=== PATIENT | female | born 1945 | race Caucasian/White ===

== ENCOUNTER → 2017-05-24 | Outpatient (CLI) | payer OTHER ==
[~2017-05-24] VITALS: Ht 154.9 cm; Wt 79.4 kg
[~2017-05-24] MED LIST: ADVAIR 500-501 EACH INH; ALBUTEROL2.5 MG/31 INH; AMITRIPTYLINE H25 M4 PO; ASPIRIN EC81 M1 PO; ATORVASTATIN CA40 MG PO; AVELOX 400 MG400 M1 PO; CARBIDOPA-LEVO1 EAC9 PO; CHLORTHALIDONE25 MG PO; COUMADIN 5 MG TA5 M1 PO; COZAAR 50 MG TA50 M2 PO; DILTIAZEM 24HR240 MG PO; FUROSEMIDE 20 M20 MG PO; KLOR-CON 1010 MEQ PO; LOPRESSOR50 PO; MUCINEX600 MG PO; PREDNISONE 10 M10 M1 PO; SPIRIVA INH; SYNTHROID137 MC1 PO; VENTOLIN HFA 1818 GM INH; ZETIA10 MG PO; ZOLOFT 50 MG TA50 M1 PO
--- NOTE | ~2017-05-24 | CATHLAB ---
Formerly [facility] [employer] [place] [address] INVASIVE PROCEDURE REPORT Name: MARIA ESTHER CASTILLO Room #: REG Mj#: [id number] Admission: 05/24/17 Attend Phys: David Beckford, Discharge: Date of : 49 Date of Service: 05/24/17 1726 Report #: [id number] THIS REPORT FOR: //name// APPROVED REPORT Study performed: 05/24/2017 08:56:56 Patient Details Patient Status: In-Patient Room #: The patient is a 71 year-old female Event Personnel David Beckford Clinical Account Executive, Itz Rashid RN, , Toshia Curtis RTR, GEOVANNY Paz, Rylan Gaviria Monitor Procedures Performed Right and Left Heart Cath w/or w/o Coronarie [id number] [facility] AA Indication Abnormal ECG Procedure Narrative The patient was brought electively to the Cardiac Catheterization Laboratory and was prepped and draped in a sterile manner. The Right Groin^ was infiltrated with 1% Lidocaine subcutaneous anesthesia. A PINNACLE 6FR Sheath #[id number] sheath was inserted into the RFA^. Coronary angiography was performed using coronary diagnostic catheters. The right coronary system was accessed and visualized with a 3DRC catheter. The left coronary system was accessed and visualized with a JL4 catheter. The left ventricle was accessed and visualized with a PIGTAIL catheter. Left ventricular/Aortic Valve gradient assessed via catheter pullback. An aortogram of the abdominal aorta was performed. Closure device was deployed with a 6 Fr MYNXGRIP 6/7F #[id number]. The patient tolerated the procedure well and there were no complications associated with the procedure. There was no hematoma. Intraoperative Conscious Sedation Sedation start time: 9.21 Case end Time: 9.40 Fentanyl 50 mcg Versed 1.5 mg Fluoro Time: 445.00 minutes Dose: 445 mGy Formerly [facility] [employer] [place] [address] INVASIVE PROCEDURE REPORT Name: MARIA ESTHER CASTILLO [id number] Admission: 05/24/17 Attend Phys: David Beckford, Discharge: Date of : 49 Date of Service: 05/24/17 1726 Report #: [id number] Contrast Type and Amount: Omnipaque 175 ml Hemodynamics The right atrial mean pressure is 17 mmHg. The right ventricular pressure is 46/12 mmHg. The pulmonary artery pressure is 43/17 mmHg with a mean of 31 mmHg. The mean pulmonary capillary wedge pressure is 23 mmHg. The aortic pressure is 152/64 mmHg with a mean of 99 mmHg. The left ventricular pressure is 164/17 mmHg with a mean of mmHg. The left ventricular end diastolic pressure is 26 mmHg. Conclusion #1 successful right heart catheterization as described above with moderate pulmonary hypertension. Cardiac output via thermodilution. #2 normal left jugular size and systolic function EF 60% #3 abdominal aorta is intact with mild irregularity no aneurysm single bilateral renal arteries widely patent. #4 left main free of disease giving rise to LAD and circumflex #5 LAD extends around the apex with mild irregularities no occlusive disease is noted #6 dominant circumflex artery is mildly disease distally but it is a dominant vessel without significant occlusive disease #7 RCA small nondominant no disease Recommendations and plan continue aggressive risk factor modification. Pulmonary pressures are markedly improved from the noninvasive assessment with PA pressures 80s to 90s. Measuring 40s with minimal elevation of wedge pressure here today. Follow-up with Dr. Gomez and Leslie in [facility]. Dr. lucio in his clinic <ELECTRONICALLY SIGNED> By: David Beckford MD, FACC 05/24/171725 25 25 David Beckford MD, FACC /INF
--- NOTE | ~2017-05-24 | EKG ---
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
--- NOTE | ~2017-05-24 | H ---
[facility] [place] [address] HISTORY AND PHYSICAL Name: MARIA ESTHER CASTILLO Room #: REG [facility].#: [id number] Admission: 05/24/17 Attend Phys: David Beckford MD, Discharge: Date of : 49 Report #: [id number] THIS REPORT FOR: //name// CC: Matthew Alegria DATE OF SERVICE: 05/24/2017 HISTORY OF PRESENT ILLNESS: The patient is a 71-year-old female who was referred up by Dr. eNlson and Dr. Gomez for right and left heart catheterization during the diagnosis of pulmonary hypertension. She was unaware of this diagnosis until the last couple of months, but notes progressive shortness of breath and dyspnea for the last year. She also has been having some associated chest pressure and discomfort. Some of this radiates to the left shoulder and arm, but this is always associated with significant shortness of breath. An echo Doppler there suggested pulmonary pressures in the 80-90 range with an ejection fraction near normal and some right-sided pressure volume overload findings. She has been compliant with medications. Systemic blood pressure has been well controlled, she states. Her mother has had 8 stents, no other family members have documented coronary artery disease. MEDICATIONS: Albuterol, Elavil, aspirin, Lipitor 40, carbidopa/levodopa, diltiazem 240, fluconazole, Lasix 20, Breo, potassium, levothyroxine, losartan 50, sertraline 50, Ventolin. PAST MEDICAL HISTORY: Positive for paroxysmal AFib, now with documented pulmonary hypertension, dyspnea, suspected COPD, asthma, hypertension, hypercholesterolemia. There is also a cholecystectomy, hysterectomy. FAMILY HISTORY: Mother has 8 stents. Father from lung cancer. SOCIAL HISTORY: She is . She has adopted children. No alcohol or tobacco. PHYSICAL EXAMINATION: VITAL SIGNS: Blood pressure is 136/70, pulse 60s. HEENT: Eyes reveal xanthelasmas. Pharynx is clear. NECK: Shows preserved upstrokes without JVD or bruits. LUNGS: Prolonged expiratory phase. CARDIOVASCULAR: Regular rate and rhythm S1, accentuated S2 P2. Holosystolic murmur is noted at the apex. ABDOMEN: Soft. No HSM, abdominal bruit. [facility] [address] [place] [address] HISTORY AND PHYSICAL Name: MARIA ESTHER CASTILLO RUTH Room #: REG [facility].#: [id number] Admission: 05/24/17 Attend Phys: David Beckford MD, Discharge: Date of : 49 Report #: [id number] EXTREMITIES: Reveal trace of edema. Distal pulses were intact. NEUROLOGIC: Nonfocal. SKIN: Warm and dry without xanthoma or ulcer. MUSCULOSKELETAL: No gross joint deformity. Generalized arthritic changes are noted. I did not ambulate her. ASSESSMENT: 1. Pulmonary hypertension. 2. Hypertension. 3. Recurrent chest pain, possible anginal equivalent. 4. Hypercholesterolemia. 5. Asthma/chronic obstructive pulmonary disease. 6. Hypothyroidism. RECOMMENDATIONS AND PLAN: Proceed to the catheterization lab for right and left heart catheterization. Risks, benefits, alternatives were discussed with the patient. She does like to proceed. I will forward all these results back to Dr. Nelson and Dr. Matthew Hernandez. Thank you for allowing to assist in care of this patient. <ELECTRONICALLY SIGNED> By: David Beckford MD, FACC 05/24/17 1539 0749 0810 David Beckford MD, FACC /nt
[2017-05-24 07:06] VITALS: BP 136/69
[2017-05-24 07:11] LABS: HEMATOCRIT 40.4 % (37.0-47.0); HEMOGLOBIN 13.5 gm/dL (12.0-15.0); MCH 29.9 pg (26.0-34.0); MCHC 33.5 g/dL (28.0-37.0); MCV 89.3 fL (80.0-100.0); RBC 4.52 mil/uL (4.20-5.00); RDW 13.4 % (10.5-14.5); WBC 7.5 thou/uL (4.0-11.0)
[2017-05-24 07:25] LABS: CALCIUM 9.4 mg/dL (8.5-10.1); CREATININE 0.9 mg/dL (0.6-1.0)
== END | disposition home or self-care (01) ==
LOC: CATH 06:38
PROVIDERS: Internal Medicine Cardiovascular Disease
DX: I25.10 Atherosclerotic heart disease of native coronary artery without angina pectoris (principal); I27.0 Primary pulmonary hypertension; I48.91 Unspecified atrial fibrillation; E03.9 Hypothyroidism, unspecified; E78.5 Hyperlipidemia, unspecified; J45.909 Unspecified asthma, uncomplicated; Z95.5 Presence of coronary angioplasty implant and graft; Z90.710 Acquired absence of both cervix and uterus; Z90.49 Acquired absence of other specified parts of digestive tract; Z79.01 Long term (current) use of anticoagulants; Z82.49 Family history of ischemic heart disease and other diseases of the circulatory system; Z79.899 Other long term (current) drug therapy; Z79.82 Long term (current) use of aspirin

== ENCOUNTER 2018-12-24 10:04 | Inpatient (IN) | payer OTHER ==
[~2018-12-24] VITALS: Ht 147.3 cm; Wt 83.0 kg
[~2018-12-24 10:04] MED LIST changes: +COZAAR 50 MG TA50 M1 PO; -COZAAR 50 MG TA50 M2 PO
[2018-12-24] MEDS ORDERED: DUPIXENT200 MG/1.1 SQ (12:24)
[2018-12-24] MEDS ORDERED: NORVASC5 M1 PO (12:25)
[2018-12-24] MEDS ORDERED: BREO ELLIPTA 21 EACH INH (12:26)
[2018-12-24] MEDS ORDERED: EPIPEN0.3 MG/0.1 IM (12:27)
[2018-12-24] MEDS ORDERED: CRESTOR5 MG PO (12:27)
[2018-12-24] MEDS ORDERED: ZETIA10 MG PO (12:28)
[2018-12-24] MEDS ORDERED: SINGULAIR 10 MG10 MG PO (12:29)
[2018-12-24] MEDS ORDERED: PREDNISONE 20 M20 MG PO (12:30)
[2018-12-24] MEDS ORDERED: PROPAFENONE 15150 MG PO (12:30)
[2018-12-24] MEDS ORDERED: PROPAFENONE 22225 MG PO (12:32)
[2018-12-24] MEDS ORDERED: TIZANIDINE HCL4 M1 PO (12:33)
[2018-12-24 13:17] LABS: BASOPHILS 1.4 % (0.0-2.0); EOSINOPHILS 1.9 % (0.0-3.0); HEMATOCRIT 42.7 % (37.0-47.0); LYMPHOCYTES 28.5 % (24.0-44.0); MCH 29.8 pg (26.0-34.0); MCHC 32.9 g/dL (28.0-37.0); MCV 90.7 fL (80.0-100.0); MONOCYTES 8.2 % (1.0-8.0); PLATELET COUNT 293 thou/uL (150-400); RBC 4.71 mil/uL (4.20-5.00); RDW 14.3 % (10.5-14.5); WBC 8.3 thou/uL (4.0-11.0)
[2018-12-24 13:35] LABS: ALBUMIN 3.8 g/dL (3.4-5.0); MAGNESIUM 2.2 mg/dL (1.8-2.4); POTASSIUM 4.4 mmol/L (3.5-5.1); TOTAL BILIRUBIN 0.4 mg/dL (<0.1-1.0); TOTAL PROTEIN 7.6 g/dL (6.4-8.2)
[2018-12-24 15:39] VITALS: BP 187/85
--- NOTE | 2018-12-24 18:49 | NUR ---
PT WAS ADMITTED FROM [facility] AROUND 1200 TODAY FOR ASTHMA EXACERBATION. PT COUGHING NON STOP. WAS GIVEN PRN COUGH MEDICATION NEEDED. PT VSS, UP TO BATHROOM WITH SBA.
[2018-12-24 20:33] VITALS: BP 147/56
[2018-12-25] VITALS (10 sets, daily range): BP systolic 118–161; BP diastolic 53–100
--- NOTE | 2018-12-25 03:39 | NUR ---
ASSESSMENT CHARTED. PT COUGH CONTROLED WITH PRN MUSINEX AND TESLON PEARLS PER EMAR. AFTER RECIEVING A BREATHING TREATMENT PT HR AFIB RVR UP TO 150'S SUSTAINED PT STATED PRESSURE IN BACK. 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 HR AFIB 130-140 BODY LINER NOTIFIED, ORDERS RECIEVED. XERALTO ORDERED AND AFIB CARDIZEM GTTS STARTED PER PROTOCOL, RATES NOW WNL. WILL CONTINUE TO MONITOR AND WITH POC.
[2018-12-25 05:28] LABS: HEMATOCRIT 42.7 % (37.0-47.0); HEMOGLOBIN 13.9 gm/dL (12.0-15.0); MCH 30.2 pg (26.0-34.0); MCHC 32.6 g/dL (28.0-37.0); MCV 92.7 fL (80.0-100.0); RBC 4.6 mil/uL (4.20-5.00); RDW 14.9 % (10.5-14.5); WBC 6.1 thou/uL (4.0-11.0)
[2018-12-25 05:54] LABS: CALCIUM 9.7 mg/dL (8.5-10.1); CREATININE 1.1 mg/dL (0.6-1.0); MAGNESIUM 2.4 mg/dL (1.8-2.4); PHOSPHORUS 4.2 mg/dL (2.5-4.9); POTASSIUM 4.1 mmol/L (3.5-5.1)
--- NOTE | 2018-12-25 14:35 | 2DMMODE ---
[facility] [place] [address] 2 D/M-MODE ECHOCARDIOGRAM Name: ANNAMARIA ESTHER RUTH Room #: 205-P [facility] IN ..#: [id number] Admission: 12/24/18 Attend Phys: Aleks Juarez MD Discharge: Date of : 49 Report #: [id number] THIS REPORT FOR: //name// APPROVED REPORT Study performed: 12/25/2018 12:25:37 EXAM: Comprehensive 2D, Doppler, and color-flow Echocardiogram Patient Location: Echo lab Status: routine BSA: 1.79 HR: 86 bpm BP: 161/47 mmHg Rhythm: NSR Other Information Study Quality: Good Indications Atrial Fibrillation 2D Dimensions RVDd: 21.94 mm IVSd: 14.11 (7-11mm) LVOT Diam: 18.96 (18-24mm) LVDd: 39.75 mm PWd: 11.33 (7-11mm) Ascending Ao: 32.07 (22-36mm) LVDs: 27.08 (25-40mm) Aortic Root: 32.51 mm IVC: 14.00 mm Volumes Left Atrial Volume (Systole) Single Plane 4CH: 53.17 mL Single Plane 2CH: 56.97 mL LA ESV Index: 35.00 mL/m2 Aortic Valve AoV Peak Theron.: 2.69 m/s AO Peak Gr.: 29.04 mmHg LVOT Max P.24 mmHg AO Mean Gr.: 12.70 mmHg LVOT Mean P.55 mmHg AO V2 Mean: 1.64 m/s LVOT Max V: 1.52 m/s AO V2 VTI: 45.44 cm LVOT Mean V: 0.83 m/s DARIO (VTI): 1.74 cm2 LVOT V1 VTI: 28.02 cm DRAIO Vmax: 1.59 cm2 SV (LVOT): 79.10 mL [facility] [place] [address] 2 D/M-MODE ECHOCARDIOGRAM Name: ANNAMARIA ESTHER NOGAL Room #: 205-P [facility] IN .R.#: [id number] Admission: 12/24/18 Attend Phys: Aleks Juarez MD Discharge: Date of : 49 Report #: [id number] Mitral Valve E/A Ratio: 0.8 MV Decel. Time: 229.86 ms MV E Max Theron.: 0.81 m/s MV A Theron.: 0.96 m/s MV PHT: 66.66 ms IVRT: 79.58 ms Pulmonary Valve PV Peak Theron.: 1.82 m/s PV Peak Gr.: 13.25 mmHg Pulmonary Vein P Vein S: 0.58 m/s P Vein A: 0.35 m/s P Vein D: 0.54 m/s P Vein A Dur.: 92.3 msec P Vein S/D Ratio: 1.07 Tricuspid Valve TR Peak Theron.: 2.98 m/s RAP Estimate: 5.00 mmHg TR Peak Gr.: 35.44 mmHg PA Pressure: 40.00 mmHg Left Ventricle The left ventricle is normal size. There is normal left ventricular wall thickness. Left ventricular systolic function is hyperdynamic. LVEF is >70%. Mild diastolic dysfunction is present (impaired relaxation pattern). Right Ventricle The right ventricle is normal size. The right ventricular systolic function is normal. Atria The left atrium size is normal. The right atrium size is normal. Aortic Valve Aortic valve is calcified. No aortic regurgitation is present. There is mild valvular aortic stenosis. Calculated aortic valve area is 1.7 cm2 with maximum pressure gradient of 29 mmHg and mean pressure gradient of 12 mmHg. Mitral Valve The mitral valve is normal in structure. Trace mitral regurgitation. No evidence of mitral valve stenosis. [place] [address] 2 D/M-MODE ECHOCARDIOGRAM Name: MARIA ESTHER CASTILLO RUTH Room #: [address] [place] [address] [place] .R.#: [id number] Admission: 12/24/18 Attend Phys: Aleks Juarez MD Discharge: Date of : 49 Report #: [id number] The tricuspid valve is normal in structure. Mild tricuspid regurgitation. Estimated PAP is 40mmHg. Pulmonic Valve Pulmonic valve is not well visualized. Trace pulmonic regurgitation. Great Vessels The aortic root is normal in size. The ascending aorta is normal in size. IVC is normal in size and collapses >50% with inspiration. Pericardium There is no pericardial effusion. <Conclusion> The left ventricle is normal size. Left ventricular systolic function is hyperdynamic. LVEF is >70%. Mild diastolic dysfunction is present (impaired relaxation pattern). The right ventricle is normal size. The left atrium size is normal. Aortic valve is calcified. There is mild valvular aortic stenosis. Calculated aortic valve area is 1.7 cm2 with maximum pressure gradient of 29 mmHg and mean pressure gradient of 12 mmHg. Trace mitral regurgitation. Mild tricuspid regurgitation. Estimated PAP is 40mmHg. The aortic root is normal in size. There is no pericardial effusion. <ELECTRONICALLY SIGNED> By: David Beckford MD, FACC 12/25/18 1435 1435 1435 David Beckford MD, FACC /INF
--- NOTE | 2018-12-25 17:40 | EKG ---
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
--- NOTE | 2018-12-25 18:50 | NUR ---
Patient states she feels much better today than yesterday. She is AOX4. VSS. No fever. Patient still concerned about why she continues to be decompensated regarding her respiratory status. No other concerns. Anticipate discharge for patient tomorrow.
--- NOTE | 2018-12-26 03:29 | NUR ---
ASSUMED PT CARE AROUND 1900. A&OX4. DENIES ANY PAIN OR SIGNIFICANT SOA. PT STATES HER BREATHING FEELS BACK TO BASELINE. UP AD CORNELL AROUND THE ROOM WITH STEADY GAIT. VOIDING ADEQUATELY PER TOILET. PT SLEPT MOST OF THE NIGHT. RESP EVEN AND UNLABORED. PROGRESSING TOWARD POC GOALS. WILL CONTINUE TO MONITOR FURTHER.
[2018-12-26 05:55] VITALS: BP 113/53
[2018-12-26 06:19] LABS: HEMATOCRIT 38.8 % (37.0-47.0); HEMOGLOBIN 12.5 gm/dL (12.0-15.0); MCH 29.8 pg (26.0-34.0); MCHC 32.2 g/dL (28.0-37.0); MCV 92.6 fL (80.0-100.0); RBC 4.19 mil/uL (4.20-5.00); RDW 14.8 % (10.5-14.5); WBC 15.1 thou/uL (4.0-11.0)
[2018-12-26 06:37] LABS: ALBUMIN 3.3 g/dL (3.4-5.0); CALCIUM 9.9 mg/dL (8.5-10.1); MAGNESIUM 2.4 mg/dL (1.8-2.4); PHOSPHORUS 4.9 mg/dL (2.5-4.9); POTASSIUM 4.4 mmol/L (3.5-5.1); TOTAL BILIRUBIN 0.2 mg/dL (<0.1-1.0); TOTAL PROTEIN 6.9 g/dL (6.4-8.2)
[2018-12-26 07:45] VITALS: BP 139/54
[2018-12-26 11:45] VITALS: BP 105/67
[2018-12-26] MEDS ORDERED: MULTAQ 400 MG400 MG PO (12:13)
[2018-12-26] MEDS ORDERED: XARELTO20 MG PO (12:13)
[2018-12-26] MEDS ORDERED: TORSEMIDE20 MG PO (12:14)
[2018-12-26] MEDS ORDERED: DILTIAZEM 24HR180 M1 PO (12:14)
[2018-12-26] MEDS ORDERED: PREDNISONE 20 M20 M1 PO (12:18)
[2018-12-26 15:25] VITALS: BP 105/46
[2018-12-26 16:25] VITALS: BP 105/67
[2018-12-26 19:31] VITALS: BP 121/62
--- NOTE | 2018-12-26 21:27 | NUR ---
ASSUMED PT CARE AT 1900. WITH NO SIGN OF DISTRESS NOTED IN PT. PT IS ALERT AND ORIENTED. PT IS STABLE AND WAITING OT BE DISCHARGED. SCHEDULED MEDS ADMINISTERED TO PT. PT IS DISCHARGED HOME AT 2124. PT IS PICKED UP BY SPOUSE. IV DISCOUNTINUED, TELEMETRY BOX TAKEN OFF.
[2018-12-27 16:06] LABS: ADENOVIRUS Negative (Negative); INFLUENZA B Negative (Negative); METAPNEUMOVIRUS Negative (Negative); PARAINFLUENZA 1 Negative (Negative); PARAINFLUENZA 2 Negative (Negative); PARAINFLUENZA 3 Negative (Negative); RHINOVIRUS Negative (Negative); RSV A Negative (Negative); RSV B Negative (Negative)
[2018-12-29 22:06] LABS: INFLUENZA A Negative (Negative)
== END 2018-12-26 21:25 | disposition home or self-care (01) | DRG 203 ==
LOC: TBA 10:04 → 2N 11:57
PROVIDERS: Nurse Practitioner; Nurse Practitioner Family; ADMIT Internal Medicine
DX: J45.901 Unspecified asthma with (acute) exacerbation (principal); F32.9 Major depressive disorder, single episode, unspecified; I10 Essential (primary) hypertension; E03.9 Hypothyroidism, unspecified; E78.5 Hyperlipidemia, unspecified; I48.0 Paroxysmal atrial fibrillation; I25.10 Atherosclerotic heart disease of native coronary artery without angina pectoris; I27.20 Pulmonary hypertension, unspecified; Z88.8 Allergy status to other drugs, medicaments and biological substances; Z90.710 Acquired absence of both cervix and uterus; Z90.49 Acquired absence of other specified parts of digestive tract
CPT/HCPCS: 10081